=== PATIENT | male | born 1955 | race Two or more races ===

== ENCOUNTER 2021-09-11 06:25 | Emergency (ER) | payer OTHER ==
[~2021-09-11] VITALS: Ht 185.4 cm; Wt 104.3 kg
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
--- NOTE | 2021-09-11 07:24 | NUR ---
ULTRASOUND AT BEDSIDE
[2021-09-11 08:36] VITALS: BP 154/84
--- NOTE | 2021-09-11 08:36 | NUR ---
Patient discharged to home in stable condition. Written and verbal after care instructions given. Patient verbalizes understanding of instruction.
== END 2021-09-11 08:36 | disposition home or self-care (01) ==
LOC: ER 06:27
DX: S93.401A Sprain of unspecified ligament of right ankle, initial encounter (principal); I10 Essential (primary) hypertension; Z60.2 Problems related to living alone; W18.30XA Fall on same level, unspecified, initial encounter; Y93.89 Activity, other specified; Y92.89 Other specified places as the place of occurrence of the external cause; Y99.8 Other external cause status
CPT/HCPCS: 73590-TC; 73610-TC; 93971-TC